=== PATIENT | female | born 1985 | race Two or more races ===

== ENCOUNTER 2025-04-03 15:45 | Emergency (ER) | payer OTHER ==
[~2025-04-03] VITALS: Ht 167.6 cm; Wt 99.8 kg
[2025-04-03 15:57] VITALS: BP 134/88; O2SAT 98
[2025-04-03] MEDS ORDERED: KETOROLAC TROMETHAMINE 15 MG VIAL IM STA (16:23)
[2025-04-03] MEDS ORDERED: DICLOFENAC SODI75 MG PO (18:07)
== END 2025-04-03 18:48 | disposition home or self-care (01) ==
LOC: ER 15:45
DX: S52.592A Other fractures of lower end of left radius, initial encounter for closed fracture (principal); W01.0XXA Fall on same level from slipping, tripping and stumbling without subsequent striking against object, initial encounter; Y93.89 Activity, other specified; Y92.017 Garden or yard in single-family (private) house as the place of occurrence of the external cause; S52.612A Displaced fracture of left ulna styloid process, initial encounter for closed fracture